=== PATIENT | male | born 1990 | race African-American/Black ===

== ENCOUNTER 2019-07-16 10:58 | Emergency (ER) | payer OTHER ==
[~2019-07-16] VITALS: Ht 180.3 cm; Wt 91.2 kg
[2019-07-16 11:01] VITALS: BP 152/74
--- NOTE | 2019-07-16 11:10 | NUR ---
WAIT AT LOBBY.
--- NOTE | 2019-07-16 12:08 | NUR ---
PT AMBULATED TO BED 05
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
--- NOTE | 2019-07-16 12:33 | NUR ---
DR DE GUZMAN EVALUATING PT AT BEDSIDE
[2019-07-16] MEDS ORDERED: traMADol 50 MG TAB PO ONE (12:40)
[2019-07-16] MEDS ORDERED: IBUPROFEN 800 MG TAB PO ONE (12:40)
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
--- NOTE | 2019-07-16 14:40 | NUR ---
Patient discharged with v/s stable. Written and verbal after care instructions given and explained. Patient alert, oriented and verbalized understanding of instructions. Ambulatory with steady gait. All questions addressed prior to discharge. ID band removed. Patient advised to follow up with PMD. Rx of Baclofen given. Patient educated on indication of medication including possible reaction and side effects. Opportunity to ask questions provided and answered.
[2019-07-16 14:42] VITALS: BP 107/68
== END 2019-07-16 14:40 | disposition home or self-care (01) ==
LOC: MED 10:58
DX: S16.1XXA Strain of muscle, fascia and tendon at neck level, initial encounter (principal); S39.012A Strain of muscle, fascia and tendon of lower back, initial encounter; S46.919A Strain of unspecified muscle, fascia and tendon at shoulder and upper arm level, unspecified arm, initial encounter; V49.9XXA Car occupant (driver) (passenger) injured in unspecified traffic accident, initial encounter; Y93.89 Activity, other specified; Y92.89 Other specified places as the place of occurrence of the external cause; Y99.8 Other external cause status
CPT/HCPCS: 71046; 72040; 72100; 99283

== ENCOUNTER 2021-03-10 16:59 | Emergency (ER) | payer OTHER ==
[~2021-03-10] VITALS: Ht 180.3 cm; Wt 99.8 kg
--- NOTE | 2021-03-10 17:09 | NUR ---
patient called 2x in lobby and outside.
[2021-03-10 17:30] VITALS: BP 125/72
== END 2021-03-10 17:09 | disposition left against medical advice (07) ==
LOC: MED 16:59
DX: R19.7 Diarrhea, unspecified (principal); J02.9 Acute pharyngitis, unspecified; R05 Cough; Z53.21 Procedure and treatment not carried out due to patient leaving prior to being seen by health care provider

== ENCOUNTER 2021-03-10 20:05 | Emergency (ER) | payer OTHER ==
[~2021-03-10] VITALS: Ht 180.3 cm; Wt 99.8 kg
[2021-03-10 20:39] VITALS: BP 126/71
[2021-03-10] MEDS ORDERED: KETOROLAC 30 MG/ML VIAL IM ONE (21:20)
[2021-03-10] MEDS ORDERED: ONDANSETRON 4 MG ODT PO ONE (21:20)
--- NOTE | 2021-03-10 23:04 | NUR ---
Pt d/c by Dr. Collins
== END 2021-03-10 23:04 | disposition home or self-care (01) ==
LOC: MED 20:05
DX: Z20.822 Contact with and (suspected) exposure to COVID-19 (principal); Z00.01 Encounter for general adult medical examination with abnormal findings
CPT/HCPCS: 87426; 96372; 99283; J1885; Q0162